=== PATIENT | male | born 1980 | race Caucasian/White ===

== ENCOUNTER 2022-05-23 11:07 | Emergency (ER) | payer OTHER, SELFPAY ==
[2022-05-23 11:13] VITALS: BP 155/92; PULSE 100; RESP 16; TEMP 36.1; O2SAT 98; BMI 30.2
--- NOTE | 2022-05-23 11:25 | ED_ITS ---
HPI - General Adult General Chief complaint: Back Pain/Injury Stated complaint: Lower back pain Time Seen by Provider: 05/23/22 11:25 Source: patient Mode of arrival: ambulatory Limitations: no limitations History of Present Illness HPI narrative: Patient is a 42 year old assigned male at with a history of chronic low back pain presenting to the emergency department today with a low back pain flare. Patient states that he was injured in 2007 and has had back issues ever since. Patient states that he has had a flare of this pain 4 times in the last year or so. Patient states that usually muscle relaxers help. Patient denies any dizziness, lightheadedness, abdominal pain, nausea, vomiting, fever, chills, blurry vision, double vision, loss of vision, chest pain, difficulty breathing, shortness of breath, night sweats, pain with urination, increased urinary frequency, increased urinary urgency, blood in [his/her/their] urine or stool, syncope or a near syncopal episode, recent trauma or falls, bowel incontinence, bladder incontinence, bowel retention, bladder retention, or any other complaints at this time. Onset (ago): day(s) Location: back Radiation: back Severity: mild Severity scale (1-10): 3 Quality: dull Pain Consistency: constant Relieving factors: none Exacerbating factors: none Associated symptoms: denies other symptoms Treatments prior to arrival: none Related Data Previous Rx's Medication Instructions Recorded cyclobenzaprine 5 mg tablet 5 mg PO TID PRN back pain 7 days 05/23/22 #21 tabs Allergies Allergy/AdvReac Type Severity Reaction Status Date / Time Penicillins [PENICILLINS] Allergy Unknown HIVES AND Verified 05/23/22 11:13 RASH sulfamethoxazole Allergy Unknown HIVES AND Verified 05/23/22 11:13 [From BACTRIM] RASH trimethoprim [From BACTRIM] Allergy Unknown HIVES AND Verified 05/23/22 11:13 RASH Review of Systems Constitutional: Constitutional: Reports no additional constitutional complaints, Denies chills, Denies fever(s) and Denies night sweats Eyes: Eyes: Reports no additional eye complaints, Denies blurry vision, Denies change in vision, Denies diplopia, Denies eye discharge, Denies loss of vision and Denies eye pain ENT: Denies dizziness Cardiovascular: Cardiovascular: Reports no additional cardiovascular complaints, Denies chest pain, Denies lightheadedness, Denies Loss of Consciousness and Denies dyspnea Respiratory: Respiratory: Reports no additional respiratory complaints and Denies dyspnea Gastrointestinal: Gastrointestinal: Reports no additional gastrointestinal complaints, Denies abdominal pain, Denies melena, Denies hematochezia, Denies change in bowel habits and Denies change in stool character Genitourinary: Genitourinary: Reports no additional male genitourinary complaints, Denies hematuria, Denies oliguria, Denies difficulty urinating, Denies dysuria, Denies urinary frequency, Denies urinary hesitancy, Denies urinary incontinence and Denies urinary urgency Musculoskeletal: Musculoskeletal: Reports no additional musculoskeletal complaints, Reports back pain, Denies numbness and Denies tingling Neurologic: Denies dizziness, Denies loss of vision, Denies numbness and Denies tingling Psychiatric: Psychiatric: Reports no additional psychiatric complaints Endocrine: Endocrine: Reports no additional endocrine complaints Hematologic/Lymphatic: Hematologic/Lymphatic: Reports no additional hematolo gic/lymphatic complaints Allergic/Immunologic: Allergic/Immunologic: Reports no additional allergic/immunologic complaints [facility] Past Medical History Attestation statement: The following information was validated with the patient. Source: old records reviewed and nursing notes reviewed Social History Social History Advance Directives: No Advance Directives Information Provided: Yes Physical Exam ED Vital Signs: Vital Signs - 24 hr 05/23/22 11:13 Temperature 97 F Pulse Rate 100 Respiratory Rate 16 Blood Pressure 155/92 H Pulse Oximetry 98 Oxygen Delivery Method Room Air BMI result Body Mass Index 30.2 Const General: cooperative, no acute distress, alert and awake Nutritional Appearance: well nourished Orientation/consciousness: patient oriented x3 Limitations: no limitations [facility] Head: Yes normal to inspection and Yes atraumatic Ears: hearing grossly normal bilaterally and external ears normal General nose exam: Normal external nose present, no nasal discharge noted and no epistaxis Face and sinus: Yes normal facial exam, No abrasion and No laceration Mouth: Normal oral and palatal mucosa present, no drooling and no muffled voice Eyes General: appearance normal, both eyes and all related structures Periorbital: periorbital findings normal Eyelids: Yes eyelids normal Conjunctivae: conjunctivae normal Pupils: Equal, round and reactive pupils present EOM: EOMs intact bilaterally Neck Neck: Yes normal visual inspection, Yes full ROM and Yes no lymphadenopathy Chest Chest palpation & inspection: normal inspection of the chest Resp Effort & Inspection: normal respiratory effort and able to speak in complete sentences Auscultation: clear to auscultation bilaterally Cardio Rate: regular rate Rhythm: regular rhythm GI Inspection: Yes normal to inspection Palpation (GI): Soft to palpation, not firm, nontender, no guarding and not rigid General: Yes no CVA tenderness Back/Spine/Pelvis Back: no CVA tenderness Cervical Spine: normal cervical lordosis and cervical ROM normal Thoracic/Lumbar Spine: thoracic and lumbar spine normal to inspection and thoraco-lumbar ROM normal Neuro General: patient oriented x3 and moves all extremities Cranial nerves: Yes Equal, round and reactive pupils present Cognition (Neuro): normal cognition Motor exam (neuro): 5/5 motor strength present throughout Sensory Exam: Normal double simultaneous stimulation for sensation Coordination: [id number] test normal Extrem General: Yes normal to inspection, Yes full ROM and Yes capillary refill normal Psych Appearance: grossly normal Mental Status: mental status grossly normal Affect: normal affect Attitude: cooperative Thought process: Normal thought process present Thought content: Normal thought content present Insight: Good insight present (Psych) Medications Administered Discontinued Medications Generic Name Dose Route Start Last Admin Trade Name Freq PRN Reason Stop Dose Admin Cyclobenzaprine HCl 5 mg 05/23/22 11:33 05/23/22 11:40 Cyclobenzaprine Hcl 5 Mg Tablet PO 05/23/22 11:34 5 mg ONCE ONE Administration Ketorolac Tromethamine 15 mg 05/23/22 11:33 05/23/22 11:39 Ketorolac Tromethamine 15 Mg/Ml Vial IM 05/23/22 11:34 15 mg ONCE ONE Administration Medical Decision Making Medical Decision Making [facility] Narrative: Patient is a 42 year old assigned male at with a history of chronic low back pain presenting to the emergency department today with a flare of low back pain. Patient's physical exam was unremarkable. I explained my physical exam findings to the patient. I answered all questions asked by the patient. Patient received IM Toradol and PO Flexeril which he stated helped his symptoms significantly. I stressed the importance of the patient taking his medication as prescribed. I stressed the importance of the patient following up with his primary care provider and a payer specialist. I stressed the importance of the patient returning to the emergency department immediately if his symptoms were to worsen or if he were to develop any dizziness, shortness of breath, difficulty breathing, chest pain, blurry vision, loss of vision, nausea, vomiti ng, abdominal pain, fever, chills, back pain, or any other complaints. Patient verbalized agreement and understanding with this treatment plan and discharge. Differential Diagnosis Differential Diagnoses: The differential diagnosis associated with the presentation includes Acute on chronic low back pain Discharge Plan Discharge Clinical Impression: Low back pain Patient Disposition: Home, Self-Care Instructions: Back Pain (ED) Additional Instructions: Follow up with your primary care provider and a payer specialist. Return to the emergency department immediately if your symptoms worsen or if you develop any dizziness, shortness of breath, difficulty breathing, chest pain, blurry vision, loss of vision, nausea, vomiting, abdominal pain, fever, chills, back pain, or any other complaints. Prescriptions: New cyclobenzaprine 5 mg tablet 5 mg PO TID PRN (Reason: back pain) 7 Days Qty: 21 0RF Referrals: [facility] [Provider Group] (Call to establish and follow up with a payer specialist. ) Anthony Nicole III, MD [Primary Care Provider] - Stand Alone Forms: Work/School Release Interventions: ED Discharge Assessment Last Done: 05/23/22 11:47 Discharge Date/Time: 05/23/22 11:48 Print Language: Bengali
[2022-05-23] MEDS: Ketorolac Tromethamine 15 MG/ML VIAL IM (11:39)
[2022-05-23] MEDS: Cyclobenzaprine HCl 5 MG TABLET PO (11:40)
== END 2022-05-23 11:48 | disposition home or self-care (01) ==
PROVIDERS: Emergency Provider Emergency Medicine Emergency Medical Services; PCP Internal Medicine
DX: M54.50 Low back pain, unspecified (principal); Z79.899 Other long term (current) drug therapy
CPT/HCPCS: 96372; 99283; 99284; J1885

== ENCOUNTER 2022-05-28 14:09 | Emergency (ER) | payer OTHER, BC, SELFPAY ==
--- NOTE | ~2022-05-28 | CT_ITS ---
EXAMINATION: CT LUMBAR SPINE WITHOUT CONTRAST CLINICAL INFORMATION: Acute on chronic low back pain. COMPARISON: None TECHNIQUE: Multiple axial images of the lumbar spine were obtained without the administration of intravenous contrast. This CT examination was performed using dose optimization techniques as appropriate, variously including the following: *Automated exposure control *Adjustment of mA and/or kV according to patient size (this includes techniques or standardized protocols for targeted exams where dose is matched to indication/reason for exam; i.e. extremities or head) *Use of iterative reconstruction technique DLP; 762 mGy-cm FINDINGS: There is normal lumbar lordosis and spinal alignment. The vertebral bodies are intact. Mild to moderate degenerative disc disease is seen at L5-S1 with mild marginal osteophyte formation and mild bilateral neural foraminal narrowing. The remainder the vertebral bodies are intact. Joints are unremarkable. The spinous and transverse processes are intact. Are unremarkable. Mild bilateral sacroiliac degenerative joint changes are seen. The visualized intra-abdominal and pelvic structures the. The paravertebral soft tissues are unremarkable. CT/CT lumbar spine wo IV con IMPRESSION: 1. L5-S1 mild to moderate degenerative disc disease. No acute abnormality. 2. Mild bilateral sacroiliac degenerative joint changes.
[2022-05-28 14:14] VITALS: BP 159/98; PULSE 101; RESP 20; TEMP 36.2; O2SAT 100; BMI 30.2
--- NOTE | 2022-05-28 14:14 | ED_ITS ---
HPI - Back Pain/Injury General Chief Complaint: Back Pain/Injury <SHAUNA Hernández - Last Filed: 05/28/22 14:18> Stated Complaint: Back pain/Work inj <SHAUNA Hernández - Last Filed: 05/28/22 14:18> Time Seen by Provider: 05/28/22 15:07 <SHAUNA Hernández - Last Filed: 05/28/22 14:18> Source: patient <SHAUNA Diamond - Last Filed: 05/28/22 17:04> Mode of arrival: ambulatory <SHAUNA Diamond - Last Filed: 05/28/22 17:04> History of Present Illness HPI Narrative: 42-year-old male with a past medical history of chronic back pain p resenting to the ED complaining of acute on chronic low back pain radiating to left buttock. Denies known injury/trauma or fall. Admits to seen in our ED on 05/23 for similar symptoms prescribed Flexeril with minimal relief. Denies numbness, tingling, weakness, urinary incontinence/retention, hematuria <SHAUNA Diamond - Last Filed: 05/28/22 17:04> MD elicited complaint: back pain <SHAUNA Diamond - Last Filed: 05/28/22 17:04> Onset (ago): day(s) <SHAUNA Diamond - Last Filed: 05/28/22 17:04> Related Data Home Medications: Previous Rx's Medication Instructions Recorded cyclobenzaprine 5 mg tablet 5 mg PO TID PRN back pain 7 days 05/23/22 #21 tabs acetaminophen 500 mg tablet 500 mg PO Q6H PRN fever or pain 05/28/22 (Tylenol Extra Strength) #14 tabs lidocaine 5 % topical patch 1 patch topical DAILY PRN pain #30 05/28/22 (Lidoderm) ea naproxen 500 mg tablet 500 mg PO BID PRN pain 10 days #20 05/28/22 tabs prednisone 20 mg tablet 40 mg PO DAILY 5 days #10 tabs 05/28/22 <SHAUNA Hernández Last Filed: 05/28/22 14:18> Allergies/Adverse Reactions: Allergies Allergy/AdvReac Type Severity Reaction Status Date / Time Penicillins [PENICILLINS] Allergy Unknown HIVES AND Verified 05/23/22 11:13 RASH sulfamethoxazole Allergy Unknown HIVES AND Verified 05/23/22 11:13 [From BACTRIM] RASH trimethoprim [From BACTRIM] Allergy Unknown HIVES AND Verified 05/23/22 11:13 RASH <SHAUNA Hernández - Last Filed: 05/28/22 14:18> Review of Systems Review of Systems: Constitutional: No Fever, No Chills ENT/Mouth: No Ear Pain, No Nasal Congestion, No sore throat, No Rhinorrhea, No Swallowing Difficulty Cardiovascular: No Chest Pain, No SOB Respiratory: No Cough, No Sputum, No Wheezing Gastrointestinal: No Nausea, No Vomiting, No Abdominal pain Genitourinary: No Dysuria, No Urinary Frequency, No Hematuria, No Urinary Incontinence/retention, No Urgency, No Flank Pain Musculoskeletal: + joint pain, No Myalgias, No Joint Swelling Skin: No Skin Lesions, No rash Neuro: No Weakness, No Numbness, No Paresthesias <SHAUNA Diamond - Last Filed: 05/28/22 17:04> Yes all other systems are reviewed and are negative <SHAUNA Diamond - Last Filed: 05/28/22 17:04> Constitutional: Constitutional: Reports as per HPI <SHAUNA Diamond - Last Filed: 05/28/22 17:04> Neurologic: Denies Sensory deficit (Neuro) <SHAUNA Diamond - Last Filed: 05/28/22 17:04> [facility] Past Medical History Attestation statement: The following information was validated with the patient. <SHAUNA Diamond - Last Filed: 05/28/22 17:04> Social History Social History: Social History Advance Directives: No Advance Directives Information Provided: No <SHAUNA Hernández - Last Filed: 05/28/22 14:18> Physical Exam Vital Signs: Vital Signs: Last Vital Signs Temp 97.1 F 05/28/22 14:14 Pulse 101 H 05/28/22 14:14 Resp 20 05/28/22 14:14 BP 159/98 H 05/28/22 14:14 Pulse Ox 100 05/28/22 14:14 O2 Del Method 02/17/23 14:14 BMI result Body Mass Index 30.2 <SHAUNA Hernández - Last Filed: 05/28/22 14:18> Vital Signs: Last Vital Signs Temp 97.1 F 05/28/22 14:14 Pulse 101 H 05/28/22 14:14 Resp 20 05/28/22 14:14 BP 159/98 H 05/28/22 14:14 Pulse Ox 100 05/28/22 14:14 O2 Del Method 05/28/22 14:14 BMI result Body Mass Index 30.2 <SHAUNA Diamond - Last Filed: 05/28/22 17:04> Const: General: cooperative, healthy appearing and no acute distress <SHAUNA Diamond - Last Filed: 05/28/22 17:04> Orientation/consciousness: patient oriented x3 <SHAUNA Diamond - Last Filed: 05/28/22 17:04> Limitations: no limitations <SHAUNA Diamond - Last Filed: 05/28/22 17:04> HEENT: Head: Yes normal to inspection and Yes atraumatic <SHAUNA Diamond - Last Filed: 05/28/22 17:04> Ears: hearing grossly normal bilaterally <SHAUNA Diamond - Last Filed: 05/28/22 17:04> General nose exam: Normal external nose present <SHAUNA Diamond - Last Filed: 05/28/22 17:04> Face and sinus: Yes normal facial exam <SHAUNA Diamond - Last Filed: 05/28/22 17:04> Eyes: General: appearance normal, both eyes and all related structures <SAHUNA Diamond - Last Filed: 05/28/22 17:04> EOM: EOMs intact bilaterally <SHAUNA Diamond - Last Filed: 05/28/22 17:04> Neck: Neck: Yes normal visual inspection and Yes no meningeal signs <SHAUNA Diamond - Last Filed: 05/28/22 17:04> Resp: Effort & Inspection: normal respiratory effort and no respiratory distress <SHAUNA Diamond - Last Filed: 05/28/22 17:04> Cardio: Rate: regular rate <SHAUNA Diamond - Last Filed: 05/28/22 17:04> Heart sounds: S1 normal heart sound present and S2 normal heart sound present <SHAUNA Diamond - Last Filed: 05/28/22 17:04> : General: Yes no CVA tenderness <Abby López PA - Last Filed: 05/28/22 17:04> Back/Spine/Pelvis: Other: No midline thoracic/lumbar spinous tenderness/step-off or deformity. + left- sided lower lumbar MSK tenderness to palpation reproducing subjective complaint, no erythema/ecchymosis <Abby López PA - Last Filed: 05/28/22 17:04> Back: no CVA tenderness <Abby López PA - Last Filed: 05/28/22 17:04> Skin: Rashes: no rashes <Abby López PA - Last Filed: 05/28/22 17:04> Wounds: no wounds <Abby López PA - Last Filed: 05/28/22 17:04> Neuro: Other: Strength intact throughout. No saddle anesthesia. Sensation intact to light touch. Neurovascular intact distally <SHAUNA Diamond - Last Filed: 05/28/22 17:04> General: patient oriented x3, gait normal, tone normal, moves all extremities, no meningeal signs and no focal motor deficits <SHAUNA Diamond - Last Filed: 05/28/22 17:04> Gait exam (Neuro): Normal gait present <SHAUNA Diamond - Last Filed: 05/28/22 17:04> Motor exam (neuro): 5/5 motor strength present throughout <SHAUNA Diamond - Last Filed: 05/28/22 17:04> Sensory Exam: No Sensory deficit (Neuro) <SHAUNA Diamond - Last Filed: 05/28/22 17:04> Extrem: General: Yes normal to inspection <SHAUNA Diamond - Last Filed: 05/28/22 17:04> Course Course Course Narrative: [place]- 14:20pm Since 2007 has had chronic back pain from an injury at work with complaints of acute on chroic lower back pain worse since he was at work Tuesday. Report he is devloping some numbness in LLE. Was seen at [facility] in 2011. Was seen here on 05/23/22 and given Flexeril and no symptomatic relief. He is requesting a CT scan due to reports he has not had a CT scan since 2011. He reports when he followed up Orthopedic in 2011 he was not a candidate for surgery until ?I cannot walk?. He denies any fevers, recent falls or trauma, urinary bowel incontinence, abdominal pain, rashes, saddle anesthesias, IV drug use or any other symptoms complaints or concerns at this time. On exam he has a normal steady gait using his cane. Plan: lumbar spine CT scan ordered at this time patient to be evaluated in [facility]. <SHAUNA Hernández - Last Filed: 05/28/22 14:18> RME- 14:20pm Since 2007 has had chronic back pain from an injury at work with complaints of acute on chroic lower back pain worse since he was at work Tuesday. Report he is devloping some numbness in LLE. Was seen at [facility] in 2011. Was seen here on 05/23/22 and given Flexeril and no symptomatic relief. He is requesting a CT scan due to reports he has not had a CT scan since 2011. He reports when he followed up Orthopedic in 2011 he was not a candidate for surgery until ?I cannot walk?. He denies any fevers, recent falls or trauma, urinary bowel incontinence, abdominal pain, rashes, saddle anesthesias, IV drug use or any other symptoms complaints or concerns at this time. On exam he has a normal steady gait using his cane. Plan: lumbar spine CT scan ordered at this time patient to be evaluated in [facility]. 1651--CT lumbar spine wo IV con IMPRESSION: 1.? L5-S1 mild to moderate degenerative disc disease. No acute abnormality. 2.? Mild bilateral sacroiliac degenerative joint changes. Results discussed with patient including worrisome signs and symptoms and strict return precautions, and when to return to the emergency department. They verbalized understanding and feel safe for discharge at this time. <SHAUNA Diamond - Last Filed: 05/28/22 17:04> Medications Administered Discontinued Medications Generic Name Dose Route Start Last Admin Trade Name Freq PRN Reason Stop Dose Admin Ketorolac Tromethamine 30 mg 05/28/22 15:23 05/28/22 15:50 Ketorolac Tromethamine 30 Mg/Ml Vial IM 05/28/22 15:24 30 mg ONCE ONE Administration Prednisone 40 mg 05/28/22 15:23 05/28/22 15:49 Prednisone 20 Mg Tablet PO 05/28/22 15:24 40 mg ONCE ONE Administration <SHAUNA Hernández - Last Filed: 05/28/22 14:18> Medications Administered Discontinued Medications Generic Name Dose Route Start Last Admin Trade Name Amando PRN Reason Stop Dose Admin Ketorolac Tromethamine 30 mg 05/28/22 15:23 05/28/22 15:50 Ketorolac Tromethamine 30 Mg/Ml Vial IM 05/28/22 15:24 30 mg ONCE ONE Administration Prednisone 40 mg 05/28/22 15:23 05/28/22 15:49 Prednisone 20 Mg Tablet PO 05/28/22 15:24 40 mg ONCE ONE Administration <SHAUNA Diamond - Last Filed: 05/28/22 17:04> Medical Decision Making Medical Decision Making MDM Narrative: 42-year-old male with a past medical history of chronic back pain presenting to the ED complaining of acute on chronic low back pain radiating to left buttock. On exam vital signs stable, NAD, nontoxic appearing, no midline spinous tenderness or or red flag symptoms. Ambulating with steady gait with cane. Concern for osteoarthritis vs MSK pain/strain versus sciatica. Low suspicion for cauda equina, cord compression, or epidural abscess. Low suspicion for fracture Plan: CT per patient request Please refer to course for remaining clinical decision making, interpretation of labs/imaging results, and discussions with consultants and/or family members. <SHAUNA Diamond - Last Filed: 05/28/22 17:04> Differential Diagnosis Differential Diagnoses: The differential diagnosis associated with the presentation includes <SHAUNA Diamond - Last Filed: 05/28/22 17:04> As above <SHAUNA Diamond - Last Filed: 05/28/22 17:04> Radiology Impression Discussion of test interpretation with radiology: I have reviewed the radiologist's reading. <SHAUNA Diamond - Last Filed: 05/28/22 17:04> External Record Review External record reviewed: Office record and Outpatient record <SHAUNA Diamond - Last Filed: 05/28/22 17:04> Prescription Management I considered prescription management with: Pain Medication <SHAUNA Diamond - Last Filed: 05/28/22 17:04> Discharge Plan Discharge Clinical Impression: Degenerative disc disease at L5-S1 level <SHAUNA Hernández - Last Filed: 05/28/22 14:18> Patient Disposition: Home, Self-Care <SHAUNA Hernández - Last Filed: 05/28/22 14:18> Instructions: Degenerative Disc Disease (ED) <SHAUNA Hernández Last Filed: 05/28/22 14:18> Additional Instructions: Your CT scan shows degenerative disc disease. Please follow-up with your spine doctor Continue taking previously prescribed Flexeril Naproxen as an anti-inflammatory / pain medication, take with food Lidoderm patches are numbing patches, apply to painful area Prednisone as a steroid In addition take Tylenol at home If symptoms persist or worsen, pain becomes unbearable, you developed urinary retention or incontinence, or weakness return to the ED <SHAUNA Hernández - Last Filed: 05/28/22 14:18> Prescriptions: New acetaminophen [Tylenol Extra Strength] 500 mg tablet 500 mg PO Q6H PRN (Reason: fever or pain) Qty: 14 0RF lidocaine [Lidoderm] 5 % adhesive patch,medicated 1 patch topical DAILY MDD remove after 12 hours PRN (Reason: pain) Qty: 30 0RF Rx Instructions: leave on most painful area for up to 12 hrs naproxen 500 mg tablet 500 mg PO BID PRN (Reason: pain) 10 Days Qty: 20 0RF prednisone 20 mg tablet 40 mg PO DAILY 5 Days Qty: 10 0RF No Action cyclobenzaprine 5 mg tablet 5 mg PO TID PRN (Reason: back pain) 7 Days Qty: 21 0RF <SHAUNA Hernández - Last Filed: 05/28/22 14:18> Referrals: Anthony Nicole III, MD [Primary Care Provider] - <SHAUNA Hernández Last Filed: 05/28/22 14:18>
[2022-05-28] MEDS: predniSONE 20 MG TABLET 40 MG PO (15:49)
[2022-05-28] MEDS: Ketorolac Tromethamine 30 MG/ML VIAL IM (15:50)
[2022-05-28 17:06] VITALS: BP 144/86; PULSE 97; RESP 20; TEMP 36.1; O2SAT 100
== END 2022-05-28 17:21 | disposition home or self-care (01) ==
PROVIDERS: Emergency Provider Emergency Medicine; PCP Internal Medicine
DX: M51.37 Other intervertebral disc degeneration, lumbosacral region (principal); M54.50 Low back pain, unspecified
CPT/HCPCS: 72131; 96372; 99283; 99284; J1885

== ENCOUNTER 2024-12-10 06:27 | Emergency (ER) | payer BC, SELFPAY ==
--- NOTE | ~2024-12-10 | CT_ITS ---
CLINICAL HISTORY: worsening cervical neck pain CT cervical spine without contrast Comparison: None Findings: No evidence of cervical spine fracture. Vertebral body heights are maintained. The usual cervical lordosis is maintained without spondylolisthesis. Mild cervical discogenic degenerative disease which is most conspicuous at C5-C6 where the spinal canal measures 13 mm. Mild multilevel facet and uncovertebral osteoarthritis. The prevertebral soft tissues are not abnormally thickened. The lung apices are clear. IMPRESSION: No acute cervical spine findings. Mild degenerative changes which are most conspicuous at C5-C6. This document has been electronically signed by: Norris Willoughby DO on 12/10/2024 10:13:50
--- NOTE | ~2024-12-10 | CT_ITS ---
CLINICAL HISTORY: throbbing headache CT head without contrast Comparison: None Findings: No acute intracranial hemorrhage or midline shift. The sprague-white matter differentiation is maintained. No significant atrophy-like change or white matter disease. Mucosal thickening within the left frontal sinus, ethmoid air cells, and maxillary sinuses. Minimal right frontal sinus and bilateral sphenoid sinus mucosal thickening. Ostiomeatal units appear patent. The mastoid air cells are clear. Cerumen/debris within the left external auditory canal. The calvarium is intact. Small calcification within the right frontal scalp. IMPRESSION: No acute intracranial findings. Pansinusitis. This document has been electronically signed by: Norris Willoughby DO on 12/10/2024 10:04:18
[2024-12-10 06:52] VITALS: BP 136/87; PULSE 82; RESP 18; TEMP 37; O2SAT 100; BMI 35.0
--- NOTE | 2024-12-10 07:05 | ED.GENADULT ---
HPI - General Adult General Chief complaint: Neck Pain/Injury Stated complaint: stiff neck Time Seen by Provider: 12/10/24 07:04 Source: patient and family (significant other at bedside corroborating history) Mode of arrival: ambulatory Limitations: no limitations History of Present Illness ED Provider: Lonnie Aleman PA-C HPI narrative: 44-year-old male with medical history of HTN, HLD, T2DM, presents to ED due to 3 days of neck pain. 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 Patient states he got home and noticed a ?stiff neck?. Patient states yesterday he went to the [facility] and walked around all day and pain has now worsened and he endorses a tension headache that starts at the base of the skull and travels down cervical paraspinal muscles and into B/L trapezius muscles. Additionally, patient states it hurts when he swallows stating it is not a sore throat but feels the muscles in the back of his neck are sore. Patient reports taking a leave extra strength for pain relief last night with mental fall effect. Patient woke up this morning still experiencing neck pain and tension headache which prompted him to seek care. Denies sick contacts, fevers, chills, visual changes, photophobia, altered mental status/confusion, rashes, MD complaint: neck pain/headache Related Data Previous Rx's ?Medication ?Instructions ?Recorded cyclobenzaprine 5 mg tablet 5 mg PO TID PRN back pain 7 days 05/23/22 #21 tabs acetaminophen 500 mg tablet 500 mg PO Q6H PRN fever or pain 05/28/22 (Tylenol Extra Strength) #14 tabs lidocaine 5 % topical patch 1 patch topical DAILY PRN pain #30 05/28/22 (Lidoderm) ea naproxen 500 mg tablet 500 mg PO BID PRN pain 10 days #20 05/28/22 tabs prednisone 20 mg tablet 40 mg (2 x 20 mg) PO DAILY 5 days 05/28/22 #10 tabs cyclobenzaprine 5 mg tablet 5 mg PO TID PRN muscle spasm #15 12/10/24 tabs ketorolac 10 mg tablet 10 mg PO Q8H 5 days #15 tabs 12/10/24 lidocaine 4 % topical patch 1 patch topical DAILY PRN pain #30 12/10/24 (Aspercreme (lidocaine)) ea Allergies Allergy/AdvReac Type Severity Reaction Status Date / Time Penicillins (PENICILLINS) Allergy Unknown HIVES AND Verified 12/10/24 06:56 RASH sulfamethoxazole (From Allergy Unknown HIVES AND Verified 12/10/24 06:56 BACTRIM) RASH trimethoprim (From BACTRIM) Allergy Unknown HIVES AND Verified 12/10/24 06:56 RASH Review of Systems Review of Systems: CONST: Negative for fever, body aches and chills. HENT: Negative for congestion, sore throat, swelling. POS neck pain, occipital headache,B/L trapezius pain EYES: Negative for discharge/pain or vision changes. RESP: Negative for cough/hemoptysis and shortness of breath. CV: Negative chest pain, difficulty breathing, palpitations. ABD: Negative pain, nausea, vomiting. : Negative increase frequency, dysuria, blood in urine or stool. MUSC: Negative for muscle aches, edema. SKIN: Negative rash, lesions/sores. NEURO: Negative headache, dizziness, weakness. Yes all other systems are reviewed and are negative [facility] Past Medical History Attestation statement: The following information was validated with the patient. Source: old records reviewed and nursing notes reviewed Social History Social History Smoked in Last 30 Days: Yes Use of substances other than those prescribed or required for medical reasons: No Advance Directives: No Advance Directives Information Provided: No Physical Exam ED Vital Signs: Vital Signs - 24 hr 12/10/24 06:52 Temperature 98.6 F Pulse Rate 82 Respiratory Rate 18 Blood Pressure 136/87 Pulse Oximetry 100 Oxygen Delivery Method Room Air BMI result Body Mass Index 35.0 GENERAL APPEARANCE: ?AxOx4, generally well-appearing, no acute distress. HEENT: ?NC, AT. MMM. EOMI, clear conjunctiva, oropharynx clear. NECK: ?Supple without lymphadenopathy. TTP of B/L cervical paraspinal muscles, mild midline cervical spine tenderness, no bony step offs palpated, restricted ROM of extension due to pain, full ROM of flexion, lateral bending, SILT, negative Kernig's, negative Brudzinski HEART:? Normal rate and regular rhythm, normal S1/S2, no m/r/g LUNGS:? CTAB, moving air well. No crackles or wheezes are heard. ABDOMEN: ?Soft, nontender, nondistended with good bowel sounds heard. BACK: No CVAT, no obvious deformity. EXTREMITIES: ?Without cyanosis, clubbing or edema. NEUROLOGICAL: ?Grossly nonfocal. Alert and oriented, moving all 4 extremities. Observed to ambulate with normal gait. Skin: ?Warm and dry without any rash. Medications Administered Discontinued Medications Generic Name Dose Route Start Last Admin Trade Name Amando PRN Reason Stop Dose Admin Acetaminophen 975 mg 12/10/24 07:16 12/10/24 07:22 Acetaminophen 325 Mg Tablet PO 12/10/24 07:17 975 mg ONCE ONE Administration Cyclobenzaprine HCl 5 mg 12/10/24 07:27 12/10/24 08:50 Cyclobenzaprine Hcl 5 Mg Tablet PO 12/10/24 07:28 5 mg ONCE ONE Administration Ketorolac Tromethamine 30 mg 12/10/24 07:16 12/10/24 07:22 Ketorolac Tromethamine 30 Mg/Ml Vial IM 12/10/24 07:17 30 mg ONCE ONE Administration Medical Decision Making Medical Decision Making MDM Narrative: 44-year-old male with medical history of HTN, HLD, T2DM, presents to ED due to 3 days of neck pain. 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 Patient states he got home and noticed a ?stiff neck?. Patient states yesterday he went to the [place] [facility] and walked around all day and pain has now worsened and he endorses a tension headache that starts at the base of the skull and travels down cervical paraspinal muscles and into B/L trapezius muscles. VS on initial observation-normotensive with BP 136/87, pulse rate of 82, respiratory rate of 18, afebrile with oral temp of 98.6?, O2 saturation 100% on room air. This is a very well-appearing patient, nontoxic appearing, no acute distress, no altered mental status. On physical exam lungs clear to auscultation bilaterally, cardiac exam reveals normal rate and rhythm without murmurs/rubs/gallops. Head is normocephalic, TTP of B/L cervical paraspinal muscles, mild TTP of midline cervical spine, TTP of B/L trapezius muscles. No focal neurological deficits, no pronator drift, patient able to ambulate without ataxic gait. Plan: labs, viral serology, rapid strep, CT C-spine, CT head/brain Course 10:16- Labs without leukocytosis/leukopenia, H&H stable, no electrolyte abnormalities. Viral serology negative, rapid strep negative CT C-spine negative for fracture, dislocation, masses however does reveal degenerative changes of C5-C6- less likely mass or fracture CT head/brain negative for hemorrhage or acute intracranial abnormality- less likely ICH Patient was medicated in the department with 30 mg IM ketorolac, 975 mg Tylenol, 5 mg cyclobenzaprine with good effect of his symptoms. Patient is mentating well, able to ambulate without ataxic/antalgic gait, no neurological focal deficits noted, physical exam revealed TTP of bilateral cervical paraspinal muscles, some muscle knots noted in bilateral trapezius muscles. As I was palpating neck anatomy patient stated ?this actually feels good? further suggesting this is a muscle strain instead of anything sinister, negative Kernig/Brudzinski's sign, no rashes, lab work negative for leukocytosis/leukopenia, no sick contacts I am less concerned for meningitis I counseled patient to follow up with his primary care doctor, and strict return precautions. Patient is in agreement with the plan. Differential Diagnosis Differential Diagnoses: The differential diagnosis associated with the presentation includes Meningitis ICH Cervical C-spine fracture Cervical strain Tension headache Viral illness Admission/Observation Consideration of admission/observation: Escalation of care including admission/observation considered Lab Data MDM Lab Attestation statement: I reviewed the patient's lab results. 12/10/24 08:07 12/10/24 08:07 Labs: Lab Results 12/10/24 12/10/24 Range/Units 08:04 08:07 WBC 7.7 (4.8-10.8) X10*3/uL RBC 5.20 (4.60-5.80) X10*6/uL Hgb 14.5 (14.0-18.0) g/dl Hct 42.1 (42.0-52.0) % MCV 81.0 (80.0-98.0) fL MCH 27.9 (27.0-33.0) pg MCHC 34.4 (31.0-36.0) g/dl RDW 12.9 (11.0-16.0) % Plt Count 193 (160-400) X10*3/uL MPV 9.3 L (9.4-12.4) fL Immature Gran % (Auto) 0.5 H (0.0-0.4) % Neut % (Auto) 70.8 (45-73) % Lymph % (Auto) 16.6 L (20-40) % [place] % (Auto) 8.5 (2-11) % Eos % (Auto) 3.1 (0-4) % Baso % (Auto) 0.5 (0-2) % Lymph # (Auto) 1.3 (1.2-4.9) X10*3/uL [place] # (Auto) 0.7 (0.1-1.2) X10*3/uL Eos # (Auto) 0.2 (0.0-0.4) X10*3/uL Baso # (Auto) 0.0 (0.0-0.2) X10*3/uL Abs Immat Gran (auto) 0.04 H (0.00-0.03) X10*3/uL Absolute Neuts (auto) 5.4 (2.0-8.3) x10*3/uL Absolute Nucleated RBC 0.000 (0.0-0.012) X10*3/uL Nucleated RBC % (auto) 0.0 (0.0-0.2) /100WBC Sodium 139 (135-145) mmol/L Potassium 5.0 (3.3-5.1) mmol/L Chloride 108 (96-108) mmol/L Carbon Dioxide 23 (22-29) mmol/L Anion Gap 13 (12-20) BUN 13 (9-16) mg/dL Creatinine 0.79 (0.5-1.4) mg/dL Estim Creat Clear Calc 159.2 Estimated GFR > 60 Random Glucose 157 H (60-115) mg/dL Calcium 8.9 (8.4-10.2) mg/dL Magnesium 2.0 (1.6-2.6) mg/dL Total Bilirubin 0.4 (0.0-1.0) mg/dL AST 20 (5-37) U/L ALT 19 (0-40) U/L Alkaline Phosphatase 83 (39-117) U/L Total Protein 6.8 (6.5-8.0) g/dL Albumin 4.3 (3.5-5.0) g/dL COVID-19 (SUZANNE) Negative (Negative) COVID-19 Clin Com See Note Influenza Type A (KAROLINA) Negative (Negative) Influenza Type B (KAROLINA) Negative (Negative) Influenza A & B Note See Note S. pyogenes GrpA KAROLINA Negative (Negative) Independent Interpretation I performed an independent interpretation of an: CT Scan Interpretation: CT head/brain which is negative for acute intracranial abnormalities, masses, I agree with the radiologist's interpretation CT C-spine negative for fracture, masses I agree with the radiologist's interpretation Radiology Impression Discussion of test interpretation with radiology: I have reviewed the radiologist's reading. Radiologist Impression: CT head brain Findings: No acute intracranial hemorrhage or midline shift. The sprague-white matter differentiation is maintained. No significant atrophy-like change or white matter disease. Mucosal thickening within the left frontal sinus, ethmoid air cells, and maxillary sinuses. Minimal right frontal sinus and bilateral sphenoid sinus mucosal thickening. Ostiomeatal units appear patent. The mastoid air cells are clear. Cerumen/debris within the left external auditory canal. The calvarium is intact. Small calcification within the right frontal scalp. IMPRESSION: No acute intracranial findings. Pansinusitis. This document has been electronically signed by: Norris Willoughby DO on 12/10/2024 10:04:18 Dictated By: Norris Willoughby MD Signed By: <Electronically signed by Norris Willoughby MD in OV> 12/10/[address] C-spine Findings: No evidence of cervical spine fracture. Vertebral body heights are maintained. The usual cervical lordosis is maintained without spondylolisthesis. Mild cervical discogenic degenerative disease which is most conspicuous at C5-C6 where the spinal canal measures 13 mm. Mild multilevel facet and uncovertebral osteoarthritis. The prevertebral soft tissues are not abnormally thickened. The lung apices are clear. IMPRESSION: No acute cervical spine findings. Mild degenerative changes which are most conspicuous at C5-C6. This document has been electronically signed by: Norris Willoughby DO on 12/10/2024 10:13:50 Dictated By: Norris Willoughby MD Signed By: <Electronically signed by Norris Willoughby MD in OV> 12/10/24 1014 Independent Historian Clinical information obtained from an independent historian. History obtained from or confirmed by: Spouse ( at bedside corroborating history) External Record Review External record reviewed: Inpatient record, Office record and Outpatient record Chronic Conditions Patient?s care impacted by: Diabetes, Hypertension and Other (HLD) Discharge Plan Discharge Clinical Impression: Cervical muscle strain Patient Disposition: Home, Self-Care Instructions: Cervical Strain (DC) Additional Instructions: You were evaluated in the ED today due to cervical neck pain, and headache. Your labs were reassuring as there was no elevation in white blood cell count indicative of infection, no electrolyte abnormality. Your viral swabs including flu/COVID were negative, your rapid strep test for strep throat was negative. You were medicated in the department with 30 mg IM ketorolac, 5 mg of Flexeril, 975 mg of Tylenol with good effect on your pain. You will be prescribed a 5 day course of Flexeril, Toradol, and lidocaine patches for pain and inflammation management. Please do not take any other NSAIDs while taking Toradol, including ibuprofen, Motrin, Aleve, naproxen. Do not place heat or ice over lidocaine patches as this can burn the skin. I encourage you to follow up with your primary care doctor to ensure improvement and resolution of symptoms. Please return to the emergency department if you experience fevers over 100.4?, worsening neck stiffness, confusion, rash over your body, numbness or tingling of your arms, chest pain, shortness of breath, nausea, vomiting or any other new/worsening/concerning symptoms. Prescriptions: New cyclobenzaprine 5 mg tablet 5 mg PO TID PRN (Reason: muscle spasm) Qty: 15 0RF lidocaine [Aspercreme (lidocaine)] 4 % adhesive patch,medicated 1 patch topical DAILY PRN (Reason: pain) Qty: 30 0RF ketorolac 10 mg tablet 10 mg PO Q8H 5 Days Qty: 15 0RF Rx Instructions: patient medicated with 30mg IM Toradol for pain management and anti-inflammatory properties for cervical neck strain No Action acetaminophen [Tylenol Extra Strength] 500 mg tablet 500 mg PO Q6H PRN (Reason: fever or pain) Qty: 14 0RF lidocaine [Lidoderm] 5 % adhesive patch,medicated 1 patch topical DAILY MDD remove after 12 hours PRN (Reason: pain) Qty: 30 0RF Rx Instructions: leave on most painful area for up to 12 hrs naproxen 500 mg tablet 500 mg PO BID PRN (Reason: pain) 10 Days Qty: 20 0RF prednisone 20 mg tablet 40 mg PO DAILY 5 Days Qty: 10 0RF cyclobenzaprine 5 mg tablet 5 mg PO TID PRN (Reason: back pain) 7 Days Qty: 21 0RF Print Language: Kittitian
--- NOTE | 2024-12-10 07:25 | PC.NURSE ---
patient a&ox3, vss, pt c/o 11/18 neck discomfort- no injury, pt medicated with pain medications per order, plan of care ongoing
--- OUTSIDE RECORDS SUMMARY | 2024-12-10 07:39 | XMS_ITS | Patient Health Record ---
[facility] Address [address] [place] [address] Care Team Providers Care Diver Pumper Name Role Phone Will Blank MD, Yoel Primary Care Provider U Pamela Mcintyre Unavailable [phone] Allergies Allergen (clinical drug ingredient) Drug/Non Drug Allergy documented on EMR Reaction Allergy Type Onset Date Status Substance with sulfonamide structure and antibacterial mechanism of action (substance) Sulfa Drugs (uncoded) Unknown Allergy Active bacitracin Bacitracin rash Drug Allergy Activ e Reason For Referral No Information Social History Tobacco Use: Social History Observation Description Date Details (start date - stop date) Current Smoker NA - NA Tobacco Use/Smoking Question Answer Notes Are you a: current smoker How many cigarettes a day do you smoke? 11-20 Additional Findings: Tobacco User Heavy cigarett e smoker (20-39 cigs/day) Alcohol Screen Question Answer Notes Did you have a drink contain ing alcohol in the past year? Yes How often did you have a dri nk containing alcohol in the past year? 2 to 3 times a week (3 points) Points 3 Interpretation Negative Tobacco use other than smoking: Question Answer Notes Are you an other tobacco user? No Plan Of Treatment No Information Insurance Providers Payer Name Payer Address Payer Phone Subscriber Number Group Number Insured Name Patient Relationship to Insured Coverage Start Date Coverage End Date [facility] [address] [place] [address] [phone] [id number] Harmeet Dominguez Self - patient is the insured Medical (General) History Medical History History ICD Code basal cell carcinoma Diabetic High blood pressure Chicken pox Surgical History Surgery Date(Month/Year) Hand Surgery 2010
--- OUTSIDE RECORDS SUMMARY | 2024-12-10 07:39 | XMS_ITS ---
Author Name [facility] Organization Unknown Care Team Organization Name Specialty Phone Email Start Date End Da te [facility] DINA ALICE Primary Care 02/16/2022 4
--- OUTSIDE RECORDS SUMMARY | 2024-12-10 07:39 | XMS_ITS | Clinical Summary ---
Author Organization [facility] Address [address] [place] [address] Care Team Providers Care Electronics Tech Name Role Phone Anthony Nicole MD Primary Care Provider [phone] Allergies Active Allergy Reactions Criticality Noted Date Comments Sulfamethoxazole-Trimethoprim 2016 Penicillins 11/29/2016 Medications No known medications Social History Tobacco Use Types Packs/Day Years Used Date Smoking Tobacco: Every Day Cigarettes 1 Alcohol Use Standard Drinks/Week Comments Yes 3 (1 standard drink = 0.6 oz pur e alcohol) Sex and Gender Information Value Date Recorded Sex Assigned at Not on file Gender Identity Not on file Sexual Orientation Not on file Last Filed Vital Signs Vital Sign Reading Time Taken Comments Blood Pressure 138/87 11/29/2016 2:13 PM EDT Pulse 66 11/29/2016 2:13 PM EDT Temperature 36.7 C (98.1 F) 11/29/2016 2:13 PM EDT Respiratory Rate 18 11/29/2016 2:13 PM EDT Oxygen Saturation 98% 11/29/2016 2:13 PM EDT Inhaled Oxygen Concentration - - Weight - - Height - - Body Mass Index - - Plan of Treatment Not on file Care Teams Electronics Tech Relationship Specialty Start Date End Date Anthony Nicole MD PCP - General Internal Medicine 11/29/16
--- OUTSIDE RECORDS SUMMARY | 2024-12-10 07:39 | XMS_ITS | Clinical Summary ---
Author Organization [facility] Address [address] [place] [address] Phone Care Team Providers Care Proposition Player Name Role Phone Anthony Nicole MD Primary Care Provider Allergies Active Allergy Reactions Criticality Noted Date Comments Sulfamethoxazole-Trimethoprim 2012 Medications diclofenac (VOLTAREN) 1 % topical gel Apply 4 g topically 2 (two) times a day. 100 g 1 024 Active lancets 30 gauge misc USE TO TEST BLOOD SUGARS DAILY 100 each 3 024 Active lisinopriL (PRINIVIL,ZEST RIL) 5 mg tablet Take 1 tablet (5 mg total) by mouth 1 (one) time each day. 90 each 1 025 Active ammonium lactate (AmLactin) 12 % lotion Apply topically if needed for dry skin. 400 g 025 2025 Active ciclopirox (PENLAC) 8 % solution Apply topically at bedtime. Apply over nail and surrounding skin. Apply daily over previous coat. After seven (7) days, may remove with alcohol and continue cycle. 6.6 mL 3 025 2024 Active metFORMIN (GLUCOPHAGE) 500 mg tablet Take 2 tablets (1,000 mg total) by mouth 2 (two) times a day with meals. 360 tablet 1 025 Active atorvastatin (LIPITOR) 20 mg tablet Take 1 tablet (20 mg total) by mouth at bedtime. 90 tablet 1 025 Active Trulicity 1.5 mg/0.5 mL pen injector injectionIndic ations:Type 2 diabetes mellitus with other kidney complication, unspecified whether petroleum terminal plant operator insulin use ([facility] [place], [facility] V28) INJECT 0.5 ML (1.5 MG) SUBCUTANEOUSLY ONE TIME PER WEEK 6 mL 1 025 Active dulaglutide (Trulicity) 1.5 mg/0.5 mL pen injector injectionIndic ations:Type 2 diabetes mellitus with other kidney complication, unspecified whether petroleum terminal plant operator insulin use ([facility] [place], [facility] V28) Inject 0.5 mL (1.5 mg total) under the skin 1 (one) time per week. 6 mL 025 2024 Discontinued Active Problems Problem Noted Date Diagnosed Date Hyperlipidemia 01/18/2020 Microalbuminuria 06/15/2018 Lung nodule 11/05/2015 Overview (01/13/2024): Done 10/2015, due for next in apr 2016 Type II diabetes mellitus wi th renal manifestations ([facility] [place], [facility] V28) 04/14/2015 Chest pain 05/24/2012 Overview (01/13/2024): - ETT 11/2015 GERD (gastroesophageal reflux disease) 3 HTN (hypertension) 05/24/2012 Tobacco use disorder 05/04/2011 Obesity (BMI 30.0-34.9) 03/11/2006 Encounters Date Type Department Care Team Description 10/17/2024 4:20 PM EDT - 10/17/2024 11:59 PM EDT Hospital Encounter [address] [phone] Chronic neck pain Discharge Disposition: Home or Self Care 10/17/2024 4:00 PM EDT Office Visit Adult Medicine [address] [phone] Kirsten Carnes PA Chronic neck pain (Primary Dx); Type 2 diabetes mellitus with other kidney complication, unspecified whether petroleum terminal plant operator insulin use ([facility] [place], [facility] V28); Hyperlipidemia, unspecified hyperlipidemia type; Hypertension, unspecified type 09/24/2024 1:00 PM EDT Office Visit Orthopedic Surgery - [address] [phone] Shawn Rivera, DPM Dermatophytosis of nail (Primary Dx); Bilateral foot pain; Xerosis of skin; Acquired hammer toe of right foot; Metatarsalgia of right foot; Contracture of joint of right foot from Last 3 Months Immunizations Name Administration Dates Next Due Moderna SARS-CoV-2 COVID-19, mRNA, LNP-S, preservative free 05/15/2021 Pneumococcal polysaccharide 23 valent (Pneumovax 23) 2yo and older 06/30/2017 Td Tetanus diptheria (Tdvax) 7yo and older 07/03,05/23/1999 Tdap Tetanus diptheria acell ular pertussis (Boostrix; Adacel) 7yo and older 05/03/2011 Surgical History Surgery Date Site/Laterality Comments WISDOM TOOTH EXTRACTION PROCEDURE: HISTORICAL WISDOM TEETH EXTRACTION HAND SURGERY Roughly 2011 Right PROCEDURE: HISTORICAL HAND SURGERY; COMMENT: Cut hand with saw. Reconstruction of some tendons, bone OTHER SURGICAL HISTORY PROCEDURE: HISTORICAL MELANOMA Medical History Medical History Date Comments Obesity, unspecified 03/11/2006 DX:Obesity, unspecified Chest pain 05/24/2012 DX:Chest pain HTN (hypertension) 05/24/2012 DX:HTN (hyper tension) GERD (gastroesophageal reflux disease) 05/24/2012 DX:GERD (gastroesophageal reflux disease) History of basal cell carcinoma 05/28/2016 DX:History of basal cell carcinoma Family History Medical History Relation Name Comments Hypertension Brother 1 Diabetes Father Hypertension Father Coronary artery disease Father's side Hypertension Mother hypothyroid Coronary artery disease Mother's side Relation Name Status Comments Brother 1 Brother 2 Alive Father Alive dm Father's side Mother Alive htn, hypothyroi d Mother's side Paternal Grandmother cancer - bone marrow Sister Alive Social History Tobacco Use Types Packs/Day Years Used Date Smoking Tobacco: Every Day Cigarettes Smokeless Tobacco: Never Tobacco Cessation:Ready to Q uit: Not Asked; Counseling Given: Not Answered Alcohol Use Standard Drinks/Week Comments Yes 0 (1 standard drink = 0.6 oz pur e alcohol) Housing Instability Answer Date Recorde d Are you worried that in the next 2 months you may not have stable housing? No 07/18/2024 Food Access & Nutrition Answer Date Rec orded Do you have access to a vari ety of food including fruits and vegetables? Yes 07/18/2024 Health Literacy Answer Date Recorded How often do you need to hav e someone help you when you read instructions, pamphlets, or other written material from your doctor or pharmacy? Never 07/18/2024 Caregiver: How often do you need to have someone help you when you read instructions, pamphlets, or other written material from your doctor or pharmacy? Not on file 07/18/2024 Financial Risk Answer Date Recorded How hard is it for you to pa y for the very basics like food, housing, medical care, and air conditioning / heating? Not very hard 07/18/2024 Transportation Answer Date Recorded Has the lack of transportati on kept you from meetings, work, or from getting things needed for daily living? No Has the lack of transportati on kept you from medical appointments or from getting medications? No 07/18/2024 Social Isolation Answer Date Recorded How often do you feel lonely or isolated from th ose around you? Never 07/18/2024 Food Risk Answer Date Recorded Within the past 12 months we worried whether our food would run out before we got money to buy more. Never true 07/18/2024 Within the past 12 months th e food we bought just didn't last and we didn't have money to get more. Never true 07/18/2024 Dependent Care Answer Date Recorded Do you need help finding or paying for care for your loved ones. For example, early childhood teacher assistant or elderly care for an older adult? Patient declined 07/18/2024 Education Answer Date Recorded Do you think completing more education or training, like finishing a GED, going to college, or learning a trade, would be helpful for you? Patient declined 07/18/2024 Employment and Income Answer Date Recor ded During the last four weeks, have you been actively looking for work? Patient declined 07/18/2024 Living Situation Answer Date Recorded What is your living situation? 0 07/18/2024 Sex and Gender Information Value Date Recorded Sex Assigned at Not on file Legal Sex Male 11:41 AM EST Gender Identity Not on file Sexual Orientation Not on file Obstetrics History Last Filed Vital Signs Vital Sign Reading Time Taken Comments Blood Pressure 114/64 10/17/2024 4:12 PM EDT Pulse 92 10/17/2024 3:42 PM EDT Temperature 36.4 C (97.5 F) 10/17/2024 3:42 PM EDT Respiratory Rate 14 10/17/2024 3:42 PM EDT Oxygen Saturation 97% 10/17/2024 3:42 PM EDT Inhaled Oxygen Concentration - - Weight 117 kg (257 lb) 10/17/2024 3:42 PM EDT Height 195.6 cm (6' 5 ) 10/17/2024 3:42 PM EDT Body Mass Index 30.48 10/17/2024 3:42 PM EDT Plan of Treatment Upcoming Encounters Date Type Department Care Team (Late st Contact Info) Description 03/19/2025 4:00 PM EST Office Visit Adult Medicine [address] [phone] Kirsten Carnes PA [address] [place] [phone] Health Maintenance Due Date Last Done Comments Hepatitis B Vaccines (1 of 3 - 19+ 3-dose series) 02/20/2000 Pneumococcal Vaccine: Pediatrics (0 to 5 Years) and At-Risk Patients (6 to 49 Years) (2 of 2 - PCV) 06/30/2018 06/30/2017 HIV Screening 03/20/2022 Hepatitis C Screening 03/20/2022 COVID-19 Vaccine ( season) 2023 05/15/2021, 09/07/2020, 08/10/2020 Diabetes: Annual Foot Exam 03/01/2024 03/01/2023 Diabetes: Annual Retina Eye Exam 10/07/2024 10/08/2023 Influenza Vaccine (#1) 2024 Diabetes: Annual Urine Albumin-Creatinine Ratio (uACR) 01/09/2025 01/10/2024 Diabetes: Blood Sugar Control Test (HGBA1C) 03/03/2025 08/31/2024, 01/06/2024, 01/06/2024, Additional history exists Social Influencers of Health Screening 07/18/2025 07/18/2024 Diabetes: Annual GFR (Glomerular Filtration Rate) 08/31/2025 08/31/2024, 01/10/2024, 01/10/2024, Additional history exists Hypertension/CHF/CAD Annual BMP Blood Test 08/31/2025 08/31/2024, 01/10/2024, 01/10/2024, Additional history exists Cholesterol Screening (Lipid Panel) 08/31/2029 08/31/2024, 01/10/2024, 01/10/2024 DTaP,Tdap,and Td Vaccines (4 - Td or Tdap) 07/04/2031 07/03/2021, 05/03/2011, 05/23/1999 Depression Screening Completed 07/18/2024 HIB Vaccines Aged Out No longer eligi ble based on patient's age to complete this topic HPV Vaccines Aged Out No longer eligi ble based on patient's age to complete this topic Hepatitis A Vaccines Aged Out No long er eligible based on patient's age to complete this topic IPV Vaccines Aged Out No longer eligi ble based on patient's age to complete this topic MMR Vaccines Aged Out No longer eligi ble based on patient's age to complete this topic Meningococcal ACWY Vaccine Aged Out N o longer eligible based on patient's age to complete this topic Meningococcal B Vaccine Aged Out No l onger eligible based on patient's age to complete this topic RSV Immunization Patients Under 20 months Aged Out No longer eligible based on patient's age to complete this topic Varicella Vaccines Aged Out No longer eligible based on patient's age to complete this topic Procedures Procedure Name Priority Date/Time Associated Diagnosis Comments XR CERVICAL SPINE 4-5 VIEWS Routine 10/17/2024 4:33 PM EDT Chronic neck pain TESTOSTERONE, TOTAL Routine 09/14/2024 1 :49 PM EDT Fatigue, unspecified type Decreased libido BASIC METABOLIC PANEL Routine 08/31/2024 2:03 PM EDT Hypertension, unspecified type Type 2 diabetes mellitus with diabetic microalbuminuria, without long-term current use of insulin ([facility] V24, [facility] V28) HEMOGLOBIN A1C Routine 08/31/2024 2:03 PM EDT Type 2 diabetes mellitus with diabetic microalbuminuria, without long-term current use of insulin ([facility] V24, [facility] V28) LIPID PANEL WITH REFLEX TO DIRECT LDL Routine 08/31/2024 2:03 PM EDT Hyperlipidemia, unspecified hyperlipidemia type Type 2 diabetes mellitus with diabetic microalbuminuria, without long-term current use of insulin ([facility] V24, [facility] V28) URINE ALBUMIN CREATININE RATIO Routine 01/10/2024 DIABETES EYE EXAM Routine 10/08/2023 DIABETES FOOT EXAM Routine 03/01/2023 from Last 3 Months or Most Recently Relevant to Health Maintenance Results * XR Cervical Spine 4-5 Views (10/17/2024 4:33 PM EDT) Anatomical Region Laterality Modality Spine, C-spine Radiographic Sera ging 10/17/2024 5:07 PM EDT Impressions 10/17/2024 5:08 PM EDT Normal study. -------- FINAL REPORT -------- Dictated By: Mery Sheth Dictated Date: 10/17/2024 17:07 ET Assigned Physician: Mery Sheth Reviewed and Electronically Signed By: Mery Sheth Signed Date: 10/17/2024 17:08 ET Workstation ID: [id number] Transcribed By: Self Edit Transcribed Date: 10/17/2024 17:07 ET Narrative 10/17/2024 5:08 PM EDT CERVICAL SPINE, 4 VIEWS HISTORY: Chronic left-sided neck pain. FINDINGS: There is normal alignment of the cervical spine. No fracture or dislocation is seen. The paravertebral soft tissues are unremarkable. No degenerative changes are seen. Procedure Note Mery Sheth MD - 10/17/2024 CERVICAL SPINE, 4 VIEWS HISTORY: Chronic left-sided neck pain. FINDINGS: There is normal alignment of the cervical spine. No fracture ordislocation is seen. The paravertebral soft tissues are unremarkable. Nodegenerative changes are seen. IMPRESSION: Normal study. -------- FINAL REPORT -------- Dictated By: Mery Sheth Dictated Date: 10/17/2024 17:07 ET Assigned Physician: Mery Sheth Reviewed and Electronically Signed By: Mery Sheth Signed Date: 10/17/2024 17:08 ET Workstation ID: [id number] Transcribed By: Self Edit Transcribed Date: 10/17/2024 17:07 ET Kirsten VILLATORO IMG XR PROCEDURES Final Result * Testosterone, total (09/14/2024 1:49 PM EDT) Testosterone 422 229 - 902 ng/dL LAB CHEMISTRY METHOD 09/14/2024 7:03 PM EDT [facility] Blood Venous blood specimen / Unknown Venipuncture / Unknown 09/14/2024 1:49 PM EDT 09/14/2024 1:49 PM EDT Kirsten VILLATORO LAB BLOOD ORDERABLES Fi nal Result [facility] [address] [place] [address], [place] [phone] * Lipid panel with reflex to direct LDL (08/31/2024 2:03 PM EDT) Cholesterol 126 0 - 200 mg/dL LAB CHEMISTRY METHOD 08/31/2024 5:18 PM EDT [facility] Triglycerides 113 0 - 150 mg/dL LAB CHEMISTRY METHOD 08/31/2024 5:18 PM EDT [facility] HDL 41 >=40 mg/dL LAB CHEMISTRY METHOD 08/31/2024 5:18 PM EDT [facility] LDL Calculated 62 0 - 100 mg/dL LAB CHEMISTRY METHOD 08/31/2024 5:18 PM EDT [facility] VLDL Cholesterol [place] 22.6 mg/dL LAB CHEMISTRY METHOD 08/31/2024 5:18 PM EDT [facility] Non HDL Chol. (LDL+VLDL) 85 <145 mg/dL LAB CHEMISTRY METHOD 08/31/2024 5:18 PM EDT [facility] Chol/HDL Ratio 3.1 0.0 - 4.4 LAB CHEMISTRY METHOD 08/31/2024 5:18 PM EDT [facility] Blood Venous blood specimen / Unknown Venipuncture / Unknown 08/31/2024 2:03 PM EDT 08/31/2024 2:03 PM EDT Kirsten VILLATORO LAB BLOOD ORDERABLES Fi nal Result Performing Organization Address City/[facility]/ZIP Co de Phone Number [facility] [address] [place] [address], [place] [phone] * Hemoglobin A1c (08/31/2024 2:03 PM EDT) Hemoglobin A1C 6.4 <6.5 % LAB CHEMISTRY METHOD 09/02/2024 1:05 PM EDT [facility] Mean Bld Glu Estim. 137 mg/dL LAB CHEMISTRY METHOD 09/02/2024 1:05 PM EDT [facility] Blood Venous blood specimen / Unknown Venipuncture / Unknown 08/31/2024 2:03 PM EDT 08/31/2024 2:03 PM EDT Kirsten VILLATORO LAB BLOOD ORDERABLES Fi nal Result [facility] [address] [place] [address], [place] [phone] * (ABNORMAL) Basic metabolic panel (08/31/2024 2:03 PM EDT) Sodium 136 133 - 145 mmol/L LAB CHEMISTRY METHOD 08/31/2024 5:[address] [facility] Potassium 4.0 3.5 - 5.5 mmol/L LAB CHEMISTRY METHOD 08/31/2024 5:[address] [facility] Chloride 103 96 - 110 mmol/L LAB CHEMISTRY METHOD 08/31/2024 5:[address] [facility] CO2 26 21 - 32 mmol/L LAB CHEMISTRY METHOD 08/31/2024 5:[address] [facility] Anion Gap 7 3 - 11 LAB CHEMISTRY METHOD 08/31/2024 5:[address] [facility] Glucose 120(H) 70 - 100 mg/dL LAB CHEMISTRY METHOD 08/31/2024 5:[address] [facility] BUN 18 5 - 25 mg/dL LAB CHEMISTRY METHOD 08/31/2024 5:[address] [facility] Creatinine 0.80 0.70 - 1.30 mg/dL LAB CHEMISTRY METHOD 08/31/2024 5:[address] [facility] eGFR 113 >=60 mL/min/1. 73m2 LAB CHEMISTRY METHOD 08/31/2024 5:[address] [facility] Comment:Calculation based on the Chronic Kidney Disease Epidemiology Collaboration (CKD-EPI) equation refit without adjustment for race. BUN/Creatinine Ratio 22.5 LAB CHEMISTRY METHOD 08/31/2024 5:[address] [facility] Calcium 9.1 8.5 - 10.5 mg/dL LAB CHEMISTRY METHOD 08/31/2024 5:[address] [facility] Blood Venous blood specimen / Unknown Venipuncture / Unknown 08/31/2024 2:03 PM EDT 08/31/2024 2:03 PM EDT Kirsten VILLATORO LAB BLOOD ORDERABLES Fi nal Result [facility] [address] [place] [address], [place] [phone] * Urine Albumin Creatinine Ratio (01/10/2024) Pathologist Critical access hospital Urine Albumin Creatinine Ratio abstracted Historical Provider HEALTH MAINTENANCE Final Result * Diabetes Eye Exam (10/08/2023) Pathologist [facility] Diabetes: Annual Retina Eye Exam abstracted Historical Provider MD HEALTH MAINTENANCE Final Result * Diabetes Foot Exam (03/01/2023) Pathologist Critical access hospital Diabetes: Annual Foot Exam abstracted Historical Provider HEALTH MAINTENANCE Final Result from Last 3 Months or Most Recently Relevant to Health Maintenance Insurance [facility] Care Teams Proposition Player Relationship Specialty Start Date End Date Anthony Nicole MD PCP - General Internal Medicine 01/09/13
--- OUTSIDE RECORDS SUMMARY | 2024-12-10 07:39 | XMS_ITS | Clinical Summary ---
Author Organization [facility] Address [email or web address] [facility] [address] [place] [address] Phone Care Team Providers Care Neonatal Nurse Name Role Phone Anthony Nicole MD Primary Care Provider + Allergies Active Allergy Reactions Criticality Noted Date Comments Penicillins 11/29/2016 Sulfamethoxazole-Trimethoprim 2016 Medications atorvastatin (LIPITOR) 20 MG tablet take 1 tablet by mouth everyday at bedtime 12/26/2022 Active lisinopril (PRINIVIL,ZESTR IL) 10 MG tablet Take 1 tablet by mouth every morning. 12/26/2022 Active metFORMIN (GLUCOPHAGE) 500 MG tablet Take 1,000 mg by mouth 2 (two) times a day with meals. 01/03/2023 Active clindamycin (CLEOCIN) 300 MG capsule Take 1 capsule (300 mg total) by mouth 3 (three) times a day. 21 capsule 03/09/2023 Active Active Problems No known active problems Immunizations Immunization Administration Dates Next Due Pneumococcal polysaccharide PPSV23 06/30/2017 Td (adult),2 Lf Tetanus Toxoid, PF, Adsorbed ,05/23/1999 Tdap 05/03/2011 Social History Tobacco Use Types Packs/Day Years Used Date Smoking Tobacco: Every Day Cigarettes Smokeless Tobacco: Never Tobacco Cessation:Ready to Q uit: Not Asked; Counseling Given: Not Answered Education Answer Date Recorded Are you interested in more education? Not on lizeth e 03/09/2023 Are you concerned about learning? Not on file 03/09/2023 No 03/09/2023 No 03/09/2023 Digital Access Answer Date Recorded No 03/09/2023 No 03/09/2023 Reliable internet access at home? Not on file 03/09/2023 Device with a working camera? Not on file 11 / Sex and Gender Information Value Date Recorded Sex Assigned at Not on file Legal Sex Male 11:47 AM EST Gender Identity Not on file Sexual Orientation Not on file Last Filed Vital Signs Vital Sign Reading Time Taken Comments Blood Pressure 113/74 03/09/2023 3:19 PM EST Pulse 89 03/09/2023 3:19 PM EST Temperature 36.7 C (98.1 F) 03/09/2023 3:19 PM EST Respiratory Rate 18 03/09/2023 3:19 PM EST Oxygen Saturation 99% 03/09/2023 3:19 PM EST Inhaled Oxygen Concentration - - Weight - - Height - - Body Mass Index - - Plan of Treatment Health Maintenance Due Date Last Done Comments CREATININE LEVEL 1981 LIPID PANEL 1981 POTASSIUM LEVEL 1981 DEPRESSION SCREENING 1993 SMOKING Hx and SMOKELESS TOBACCO SCREENING 1994 HEPATITIS C SCREENING 1999 HIV ONE-TIME SCREENING (18-6 5 YEARS) 1999 PNEUMOCOCCAL VACCINES (0-49 years) (2 of 2 - PCV) 06/30/2018 06/30/2017 COVID-19 VACCINE (4 - 2023-2 5 season) 2023 05/15/2021, 09/07/2020, 08/10/2020 INFLUENZA VACCINE (#1) 2024 Adult Td,Tdap Booster 07/04/2031 07/03/2021 , 05/03/2011, 05/23/1999 HEPATITIS A VACCINES Aged Out No long er eligible based on patient's age to complete this topic HIB VACCINES Aged Out No longer eligi ble based on patient's age to complete this topic MENINGOCOCCAL VACCINES (ACWY) Aged Out No longer eligible based on patient's age to complete this topic MENINGOCOCCAL VACCINES (B) Aged Out N o longer eligible based on patient's age to complete this topic Medical Devices Not on file Insurance [employer] [facility] Care Teams Neonatal Nurse Relationship Specialty Start Date End Date Anthony Nicole MD [address] [place] [phone] PCP - General Internal Medicine 03/09/23 Additional Source Comments The information contained in this document represents components of the legal health record. It is not the complete legal health record.[facility]
[2024-12-10 08:11] LABS: MANUAL DIFF FLAG NO
[2024-12-10 08:22] LABS: Hematocrit 42.1 % (42.0-52.0); Hemoglobin 14.5 g/dl (14.0-18.0); Imm Gran Abs Auto 0.04 X10*3/uL (0.00-0.03); Imm Gran Pct Auto 0.5 % (0.0-0.4); Lymphocytes Absolute Auto 1.3 X10*3/uL (1.2-4.9); Mean Corpuscular HGB Conc 34.4 g/dl (31.0-36.0); Mean Corpuscular Hemoglobin 27.9 pg (27.0-33.0); Mean Corpuscular Volume 81.0 fL (80.0-98.0); NRBC Abs Auto 0.000 X10*3/uL (0.0-0.012); NRBC Pct Auto 0.0 /100WBC (0.0-0.2); Platelet Count 193 X10*3/uL (160-400); Red Blood Count 5.20 X10*6/uL (4.60-5.80); White Blood Count 7.7 X10*3/uL (4.8-10.8)
[2024-12-10 08:26] LABS: IDNOW Serial# 08D9AD1C; Strep A Nucleic Acid Negative (Negative)
[2024-12-10 08:27] LABS: COVID-19 Test Negative (Negative); IDNOW Serial# 58CA691E
[2024-12-10 08:28] LABS: IDNOW Serial# 55D5AD1C; Influenza B2 Negative (Negative)
[2024-12-10 08:33] LABS: Alanine Aminotransferase 19 U/L (0-40); Albumin Level 4.3 g/dL (3.5-5.0); Alkaline Phosphatase 83 U/L (39-117); Anion Gap 13 (12-20); Aspartate Amino Transferase 20 U/L (5-37); Blood Urea Nitrogen 13 mg/dL (9-16); Calcium 8.9 mg/dL (8.4-10.2); Carbon Dioxide 23 mmol/L (22-29); Chloride 108 mmol/L (96-108); Creatinine Clr Calc Pharmacy 159.2; Estimated Glomerular Filt Rate > 60; Magnesium 2.0 mg/dL (1.6-2.6); Potassium 5.0 mmol/L (3.3-5.1); Sodium 139 mmol/L (135-145); Total Protein 6.8 g/dL (6.5-8.0)
--- NOTE | 2024-12-10 08:41 | PC.NURSE ---
missing med pharmacy has been called twice for the muscle relaxer, it is not showing in the pyxis to remove, they stated they will bring it down when they have an opportunity.
--- NOTE | 2024-12-10 08:54 | PC.NURSE ---
pt medicated per order, states his pain is down to 3/10
[2024-12-10 10:55] VITALS: BP 128/88; PULSE 84; RESP 18; TEMP 36.7; O2SAT 99
== END 2024-12-10 10:55 | disposition home or self-care (01) ==
PROVIDERS: Emergency Provider Emergency Medicine; PCP Internal Medicine
DX: S16.1XXA Strain of muscle, fascia and tendon at neck level, initial encounter (principal); X58.XXXA Exposure to other specified factors, initial encounter; Y93.9 Activity, unspecified; Y92.9 Unspecified place or not applicable; Y99.9 Unspecified external cause status; M54.2 Cervicalgia; R51.9 Headache, unspecified; I10 Essential (primary) hypertension; E11.9 Type 2 diabetes mellitus without complications
CPT/HCPCS: 70450; 72125; 80053; 83735; 85025; 87502; 87635; 87651; 96372; 99284; J1885

== ENCOUNTER → 2024-12-10 07:42 | Outpatient (BNV) | payer BC, SELFPAY | PROVIDERS: Emergency Provider Emergency Medicine; PCP Internal Medicine; Visit Provider Radiology Diagnostic Radiology | DX: M50.322 Other cervical disc degeneration at C5-C6 level (principal); R51.9 Headache, unspecified | CPT/HCPCS: 70450; 72125 ==